=== PATIENT | male | born 2000 | race Caucasian/White ===

== ENCOUNTER 2022-10-15 23:34 | Emergency (ER) | payer SELFPAY ==
[~2022-10-15] VITALS: Ht 182.9 cm; Wt 81.6 kg
[2022-10-16] MEDS ORDERED: OXYCODONE/APAP 5-325 MG TABLET PO ONE (00:15)
[2022-10-16] MEDS ORDERED: OXYCODONE/APAP 5-325 MG TABLET ONE (00:22)
[2022-10-16] MEDS ORDERED: HYDR-4209 PO (00:29)
--- NOTE | 2022-10-16 02:05 | NUR ---
Patient given written and verbal discharge instructions. Patient verbalizes understanding of instructions. Patient is ambulatory with steady gait. Refuses offer of care home placement. Patient given list of available shelters in surrounding area. Patient is a/ox4, NAD noted.
[2022-10-16 02:08] VITALS: BP 126/67
== END 2022-10-16 02:08 | disposition home or self-care (01) ==
LOC: ER 23:42
DX: S30.0XXA Contusion of lower back and pelvis, initial encounter (principal); Z71.6 Tobacco abuse counseling; F17.210 Nicotine dependence, cigarettes, uncomplicated; Z79.899 Other long term (current) drug therapy; W01.0XXA Fall on same level from slipping, tripping and stumbling without subsequent striking against object, initial encounter; Y93.89 Activity, other specified; Y92.89 Other specified places as the place of occurrence of the external cause; Y99.8 Other external cause status
CPT/HCPCS: 72100; 72170; A4663